=== PATIENT | male | born 1995 | race Caucasian/White ===

== ENCOUNTER 2019-04-02 04:05 | Emergency (ER) | payer BC, SELFPAY ==
[2019-04-02 04:06] VITALS: BP 175/111; PULSE 85; RESP 16; TEMP 36.6; O2SAT 100; BMI 30.5
--- NOTE | 2019-04-02 04:35 | ED.VIS.GEN ---
History of Present Illness Chief Complaint: Abd Pain Narrative: Patient is a 24-year-old male who presents with chief complaint of gallbladder attack. He has known history of gallstones. He has previously seen a surgeon but was then lost to follow-up. He ate pizza last night. About 40 minutes ago he developed right upper quadrant abdominal pain and nausea which felt similar to prior episodes of biliary colic. However now his symptoms of actually completely resolved and he has no complaints. No fevers. No vomiting. Past Medical History - Allergies and Home Meds Allergies/Adverse Reactions: Allergies No Known Allergies Allergy (Verified 04/02/19 04:11) Primary Care Physician: Gera AlexOut of [Primary Care Provider] - Past Medical History: - - Biliary colic Smoking Status: Never smoker Review of Systems All systems negative except as indicated General: Denies: Fever Cardiovascular: Reports: Chest pain Respiratory: Reports: Dyspnea. Denies: Paroxysmal nocturnal dyspnea Gastrointestinal: Reports: Abdominal pain, Nausea. Denies: Vomiting Physical Exam Vital Signs/Narrative: Vital Signs Temp Pulse Resp BP Pulse Ox 04/02/19 04:06 97.9 F 85 16 175/111 H 100 Inital Vital Signs reviewed: Yes General: Well nourished Head: Normocephalic Eyes: EOMI ENT: Moist mucous membranes Neck: Supple Cardiovascular: Regular rate, Regular rhythm Respiratory: No distress, CTA bilaterally Abdomen: Soft, Nontender, Nondistended Skin: Normal color Neurological: Alert Psychological: Normal affect Diagnostic/Tx/Re-eval - Medical Decision Making I discussed checking laboratory studies with the patient. However given that his symptoms have since completely resolved I feel acute cholecystitis or biliary obstruction are unlikely. Patient agrees that laboratory studies would likely be of low yield. He would prefer to follow-up as an outpatient and be discharged. He does understand to return for new or worsening symptoms. Patient discharged. ED Disposition - Plan for ED Patient: Disposition: Home or Assisted Living Diagnosis: Biliary colic Instructions: BILIARY COLIC with Gallstone (Confirmed) Referrals: Gera AlexOut of [Primary Care Provider] -
[2019-04-02 05:04] VITALS: BP 114/66
== END 2019-04-02 05:04 | disposition home or self-care (01) ==
LOC: ED 04:54
PROVIDERS: Emergency Provider Emergency Medicine
DX: K80.50 Calculus of bile duct without cholangitis or cholecystitis without obstruction (principal); Z87.19 Personal history of other diseases of the digestive system
CPT/HCPCS: 99282